=== PATIENT | male | born 1935 | race Caucasian/White ===

== ENCOUNTER 2017-01-12 17:45 | Emergency (ER) | payer SELFPAY ==
[2017-01-12] VITALS (8 sets, daily range): BP systolic 95–141; BP diastolic 51–83; PULSE 59–81; RESP 18–20; O2SAT 95–99
[2017-01-12] MEDS ORDERED: HTN MED (17:55)
[2017-01-12] MEDS ORDERED: CHOLESTEROL MED (17:55)
[2017-01-12] MEDS ORDERED: ASPI-516 CHEW (17:55)
[2017-01-12] MEDS ORDERED: LIDOCAINE HCL 1% 50 ML VIAL ONE (17:56)
[2017-01-12] MEDS ORDERED: LIDOCAINE HCL 1% 50 ML VIAL INFIL ONE (18:15)
[2017-01-12] MEDS ORDERED: DIPHTH/TETANUS/ACEL PERTUSSIS (BOOSTER) 0.5 ML VIAL/PFS IM ONE (18:15)
[2017-01-12] MEDS ORDERED: SODIUM CHLOR 0.9% 1000 ML INJ 1,000 ML IV SCH (18:19)
[2017-01-12] MEDS ORDERED: SODIUM CHLORIDE 0.9% FLUSH 10 ML FLUSH IVF PRN (18:30)
[2017-01-12 18:32] LABS: AUTOMATED NEUTROPHIL # 3.7 TH/MM3 (1.8-7.7); BASOPHIL # 0.2 TH/MM3 (0-0.2); BASOPHIL % 1.9 % (0.0-2.0); EOSINOPHIL # 0.3 TH/MM3 (0-0.4); EOSINOPHIL % 2.9 % (0.0-4.0); HEMATOCRIT 37.8 % (39.0-51.0); HEMO FLAGS DIFF FINAL; LYMPH % 44.9 % (9.0-44.0); MEAN CELL VOLUME 88.8 FL (80.0-100.0); MEAN CORPUSCULAR HGB CONC 32.7 % (32.0-36.0); MONO % 8.4 % (0.0-8.0); NEUT % 41.9 % (16.0-70.0); PLATELET COUNT 261 TH/MM3 (150-450); RED BLOOD COUNT 4.26 MIL/MM3 (4.50-5.90); WHITE BLOOD COUNT 8.9 TH/MM3 (4.0-11.0)
[2017-01-12 18:42] LABS: POTASSIUM 3.4 MEQ/L (3.5-5.1)
[2017-01-12 18:45] LABS: BICARBONATE 21.6 MEQ/L (21.0-32.0)
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
[2017-01-12 18:48] LABS: APTT (PATIENT) 23.7 SEC (24.3-30.1); PROTHROMBIN TIME - PATIENT 10.9 SEC (9.8-11.6)
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
[2017-01-12] MEDS ORDERED: POTASSIUM CHLORIDE 10 MEQ CONTROLLED RELEASE TAB PO ONE (20:00)
--- NOTE | 2017-01-13 17:54 | EKG ---
Date Performed: 01/12/2017 Time Performed: 18:49:27 PTAGE: 81 years EKG: SINUS BRADYCARDIA BORDERLINE ECG NO PREVIOUS TRACING DOCTOR: Giovanni Bates Interpretating Date/Time 01/13/2017 17:53:20
== END 2017-01-12 22:10 | disposition home or self-care (01) ==
LOC: PHED 17:45
DX: S01.81XA Laceration without foreign body of other part of head, initial encounter (principal); S09.90XA Unspecified injury of head, initial encounter; R00.1 Bradycardia, unspecified; E78.00 Pure hypercholesterolemia, unspecified; I10 Essential (primary) hypertension; V18.0XXA Pedal cycle driver injured in noncollision transport accident in nontraffic accident, initial encounter; Y93.55 Activity, bike riding; Z23 Encounter for immunization; Z79.82 Long term (current) use of aspirin
CPT/HCPCS: 12013; 70450; 70486; 72125; 80048; 80307; 85025; 85610; 85730; 86850; 86900; 86901; 90471; 90715; 93005; 96360; 99285; J7030